=== PATIENT | male | born 1995 | race African-American/Black ===

== ENCOUNTER 2024-10-02 10:34 | Emergency (ER) | payer SELFPAY ==
[2024-10-02] MEDS: Lidocaine 4% 1 each Patch TOP STA (11:12)
== END 2024-10-02 11:15 | disposition home or self-care (01) ==
LOC: MW.ED 10:34
DX: M54.50 Low back pain, unspecified (principal); Z79.899 Other long term (current) drug therapy; Z75.8 Other problems related to medical facilities and other health care
CPT/HCPCS: 99283; A9270